=== PATIENT | female | born 1940 | race Caucasian/White ===

== ENCOUNTER 2023-07-23 12:25 | Emergency (ER) | payer MEDICARE ==
[~2023-07-23] VITALS: Ht 165.1 cm; Wt 52.3 kg
[2023-07-23 13:23] LABS: BILIRUBIN,URINE NEGATIVE (Neg); CLARITY,URINE CLEAR (Clear); COLOR,URINE YELLOW (Yellow); GLUCOSE, URINE NEGATIVE (Neg); KETONES,URINE NEGATIVE (Neg); LEUKOCYTE ESTERASE ,URINE SMALL (Neg); NITRITES, URINE NEGATIVE (Neg); OCCULT BLOOD,URINE TRACE-INTACT (Neg); PH,URINE 6.5 (4.8-8.0); PROTEIN,URINE NEGATIVE (Neg); UROBILINOGEN,URINE 0.2 E.U/dL (0.2-1.0)
[2023-07-23 13:30] LABS: UA COLLECTION TYPE CLN CATCH MIDSTREAM
[2023-07-23 13:31] LABS: SQUAMOUS EPITHELIAL CELL,UR FEW /LPF (FEW); WBC,URINE 20-30 /HPF (0-4)
[2023-07-23 13:32] LABS: BACTERIA,URINE FEW /HPF (Neg)
[2023-07-23] MEDS ORDERED: CEFD300C3 PO (16:20)
[2023-07-23] MEDS ORDERED: ketorolac trometh inj. 60 MG/2 ML VIAL IM ONE (16:55)
[2023-07-23] MEDS: ketorolac tromethamine 15mg/ml inj. IM ONE (16:58)
[2023-07-23] MEDS: diazepam inj 5 MG/ML inj. IM ONE (16:58)
[2023-07-23 17:11] VITALS: BP 99/74; PULSE 92; RESP 15; TEMP 98.4; O2SAT 99
== END 2023-07-23 17:15 | disposition home or self-care (01) ==
LOC: ER 12:25
DX: S39.012A Strain of muscle, fascia and tendon of lower back, initial encounter (principal); N39.0 Urinary tract infection, site not specified; Z88.8 Allergy status to other drugs, medicaments and biological substances; X58.XXXA Exposure to other specified factors, initial encounter; Y93.89 Activity, other specified; Y92.89 Other specified places as the place of occurrence of the external cause; Y99.8 Other external cause status
CPT/HCPCS: 81001; 87077; 87088; 87186; 96372; 99284; J1885; J3360

== ENCOUNTER 2023-08-02 10:49 | Emergency (ER) | payer MEDICARE ==
[~2023-08-02] VITALS: Ht 165.1 cm; Wt 54.4 kg
[~2023-08-02 10:49] MED LIST: CEFD300C3 PO
[2023-08-02 11:40] LABS: BILIRUBIN,URINE NEGATIVE (Neg); CLARITY,URINE SLIGHTLY CLOUDY (Clear); COLOR,URINE YELLOW (Yellow); GLUCOSE, URINE NEGATIVE (Neg); KETONES,URINE NEGATIVE (Neg); LEUKOCYTE ESTERASE ,URINE SMALL (Neg); NITRITES, URINE NEGATIVE (Neg); OCCULT BLOOD,URINE SMALL (Neg); PH,URINE 5.5 (4.8-8.0); PROTEIN,URINE NEGATIVE (Neg); UROBILINOGEN,URINE 0.2 E.U/dL (0.2-1.0)
[2023-08-02 11:44] LABS: UA COLLECTION TYPE CLN CATCH MIDSTREAM
[2023-08-02 11:50] LABS: MUCUS STRANDS MODERATE /LPF (Neg); SQUAMOUS EPITHELIAL CELL,UR MODERATE /LPF (FEW); WBC CLUMPS,URINE FEW /HPF (NEGATIVE); WBC,URINE 20-30 /HPF (0-4)
[2023-08-02 11:51] LABS: BACTERIA,URINE 1+ /HPF (Neg); RBC,URINE 0-2 /HPF (0-2); TRANSITIONAL EPI CELLS,URINE MANY /HPF
[2023-08-02 12:29] LABS: ALBUMIN 3.4 G/DL (3.4-5.0); ANION GAP 12 (8-16); BLOOD UREA NITROGEN 12 MG/DL (7-18); BUN/CREATININE RATIO 12.5 (10.0-20.0); CHLORIDE 100 MMOL/L (99-107); CREATININE 0.96 MG/DL (0.40-0.90); GLUCOSE 92 MG/DL (70-104); LIPASE 20 U/L (16-77); POTASSIUM 3.6 MMOL/L (3.5-5.1); SODIUM 135 MMOL/L (135-145); TOTAL CARBON DIOXIDE 23.3 MMOL/L (24-32); eCRCL 39 ML/MIN; eGFR 56 ML/MIN
[2023-08-02 12:32] LABS: BASOPHILS # (AUTO) 0.1 X10'3 (0-0.2); BASOPHILS % (AUTO) 0.6 % (0-1); EOSINOPHILS # (AUTO) 0.1 X10'3 (0-0.9); EOSINOPHILS % (AUTO) 1.1 % (0-6); HEMATOCRIT 37.7 % (35.0-45.0); HEMOGLOBIN 12.8 g/dl (12.0-16.0); LYMPHOCYTES # (AUTO) 1.3 X10'3 (1.1-4.8); LYMPHOCYTES % (AUTO) 12.9 % (21-51); MEAN CORPUSCULAR HEMOGLOBIN 32.1 PG (27.0-31.0); MEAN CORPUSCULAR VOLUME 94.4 FL (78-98); MEAN PLATELET VOLUME 7.4 FL (7.4-10.4); MONOCYTES # (AUTO) 0.9 X10'3 (0-0.9); MONOCYTES % (AUTO) 8.7 % (2-12); NEUTROPHILS # (AUTO) 7.8 X10'3 (1.8-7.7); NEUTROPHILS % (AUTO) 76.7 % (42-75); PLATELET COUNT 468 X10'3 (140-440); RED CELL DISTRIBUTION WIDTH 13.9 % (11.5-14.5); WHITE BLOOD COUNT 10.2 X10'3 (4.5-11.0)
[2023-08-02 13:19] VITALS: TEMP 98.9
[2023-08-02] MEDS ORDERED: ACET-3068 PO (16:03)
[2023-08-02] MEDS ORDERED: CIPR250S2 PO (16:03)
[2023-08-02 16:21] VITALS: BP 109/57; PULSE 68; RESP 17; O2SAT 93
== END 2023-08-02 16:28 | disposition home or self-care (01) ==
LOC: ER 10:49
DX: S39.012A Strain of muscle, fascia and tendon of lower back, initial encounter (principal); N39.0 Urinary tract infection, site not specified; Z88.8 Allergy status to other drugs, medicaments and biological substances; Z79.2 Long term (current) use of antibiotics; Z79.899 Other long term (current) drug therapy; X58.XXXA Exposure to other specified factors, initial encounter; Y93.89 Activity, other specified; Y92.89 Other specified places as the place of occurrence of the external cause; Y99.8 Other external cause status
CPT/HCPCS: 36415; 74176; 80048; 81001; 83690; 85025; 87088; 99284

== ENCOUNTER 2023-08-27 11:19 | Emergency (ER) | payer MEDICARE ==
[~2023-08-27] VITALS: Ht 165.1 cm; Wt 51.9 kg
[~2023-08-27 11:19] MED LIST changes: +ACET-3068 PO; -CEFD300C3 PO; +CIPR250S2 PO
[2023-08-27 11:57] VITALS: BP 126/60; PULSE 89; RESP 14; TEMP 99; O2SAT 99
== END 2023-08-27 19:11 | disposition left against medical advice (07) ==
LOC: ER 11:20
DX: F32.A Depression, unspecified (principal); F41.9 Anxiety disorder, unspecified; Z88.8 Allergy status to other drugs, medicaments and biological substances; Z79.2 Long term (current) use of antibiotics
CPT/HCPCS: 99281

== ENCOUNTER 2024-04-06 16:49 | Emergency (ER) | payer MEDICARE ==
[~2024-04-06] VITALS: Ht 165.1 cm; Wt 57.8 kg
[~2024-04-06 16:49] MED LIST changes: -ACET-3068 PO
[2024-04-06] MEDS: mupirocin 2% ointment 22GM TP STA (21:32)
[2024-04-06] MEDS: LIDOcaine 1% W/epiNEPHrine 1:100,000 20ml vial IJ ONE (21:32)
[2024-04-06] MEDS: HYDROcodone/acetaminophen 10/325mg tab PO ONE (22:10)
[2024-04-06 22:20] VITALS: PULSE 98; RESP 13
[2024-04-06 22:21] VITALS: BP 120/78; TEMP 98.6; O2SAT 97
== END 2024-04-06 22:24 | disposition home or self-care (01) ==
LOC: ER 16:50
DX: L02.03 Carbuncle of face (principal); Z88.8 Allergy status to other drugs, medicaments and biological substances; Z79.2 Long term (current) use of antibiotics
CPT/HCPCS: 10060; 99283; J3490; Z7610